=== PATIENT | female | born 1960 | race American Indian/Alaskan Native ===

== ENCOUNTER 2017-01-17 09:19 | Emergency (ER) | payer SELFPAY ==
[2017-01-17 09:37] VITALS: PULSE 71; TEMP 98.2; O2SAT 98
--- NOTE | 2017-01-17 10:18 | C.PDOC ---
History Of Present Illness 56 y/o female presents to ED c/o bilateral knee discomfort for 6 months. Patient notes pain is worse when walking up the stairs. Denies trauma, new weakness or numbness, or other associated symptoms. Time Seen by Provider: 01/17/17 09:48 Chief Complaint (Nursing): Lower Extremity Problem/Injury History Per: Patient History/Exam Limitations: no limitations Onset/Duration Of Symptoms: Days Current Symptoms Are (Timing): Still Present Recent travel outside of the [place]: No Past Medical History Reviewed: Historical Data, Nursing Documentation, Vital Signs Vital Signs: Last Vital Signs Temp 98.2 F 01/17/17 09:36 Pulse 71 01/17/17 10:50 Resp 18 01/17/17 10:50 BP 120/72 01/17/17 10:50 Pulse Ox 98 01/17/17 10:50 Family History: States: Unknown Family Hx - Social History Hx Alcohol Use: No Hx Substance Use: No - Immunization History Hx Tetanus Toxoid Vaccination: No Hx Influenza Vaccination: No Hx Pneumococcal Vaccination: No Review Of Systems Except As Marked, All Systems Reviewed And Found Negative. Constitutional: Negative for: Fever, Chills Musculoskeletal: Positive for: Other (bilateral knee pain) Skin: Negative for: Rash Neurological: Negative for: Weakness, Numbness Physical Exam - Physical Exam Appears: Non-toxic, No Acute Distress Skin: Normal Color, Warm, Dry Head: Atraumatic, Normacephalic Extremity: Normal ROM, No Tenderness, Capillary Refill (< 2 sec.), No Deformity , Other (mild knobby knees) Extremity: Bilateral: Normal Color And Temperature Neurological/Psych: Oriented x3, Normal Motor, Normal Sensation ED Course And Treatment O2 Sat by Pulse Oximetry: 98 (RA) Pulse Ox Interpretation: Normal Medical Decision Making Medical Decision Making: mild chronic b/l knee arthritis, no injuries. Disposition Doctor Will See Patient In The: Office Counseled Patient/Family Regarding: Studies Performed, Diagnosis - Disposition Referrals: [facility] [Outside] [facility] [Outside] John Anton MD [Staff Provider] - Disposition: HOME/ ROUTINE Disposition Time: 10:18 Condition: GOOD Additional Instructions: tylenol 1000 mg 4x/day as needed for b/l knee pain Seek rehab for improved walking/stairs techniques Weight loss. Instructions: Arthritis (ED) Forms: [employer] ([place]) - Clinical Impression Clinical Impression: Arthritis - Scribe Statement The provider has reviewed the documentation as recorded by the Scribe SM All medical record entries made by the Scribe were at my direction and personally dictated by me. I have reviewed the chart and agree that the record accurately reflects my personal performance of the history, physical exam, medical decision making, and the department course for this patient. I have also personally directed, reviewed, and agree with the discharge instructions and disposition.
--- NOTE | 2017-01-17 10:35 | RAD ---
PROCEDURE: Bilateral Knee Radiographs. HISTORY: 6 mo pain with climbing stairs COMPARISON: None. FINDINGS: BONES: Right Knee: Normal. No fracture. Left Knee: Normal. No fracture. JOINTS: Right Knee: Normal. No osteoarthritis. Left knee: Mild narrowing of medial joint compartment, likely early osteoarthritis. No articular erosion. Lateral and patellofemoral compartments are preserved. SOFT TISSUES: Right Knee: Normal. Left Knee: Normal. JOINT EFFUSION: Right Knee: None. Left Knee: None. OTHER FINDINGS: None. IMPRESSION: Minimal medial osteoarthritis of the left knee. Otherwise unremarkable.
[2017-01-17 10:51] VITALS: BP 120/72; RESP 18
== END 2017-01-17 10:52 | disposition home or self-care (01) ==
LOC: C.ER 09:19
DX: M17.0 Bilateral primary osteoarthritis of knee (principal)